=== PATIENT | male | born 1990 | race Caucasian/White ===

== ENCOUNTER → 2017-12-05 | Emergency (ER) | payer OTHER ==
[~2017-12-05] VITALS: Ht 172.7 cm; Wt 71.7 kg
[~2017-12-05] MED LIST: GILENYA0.5 MG; PNEU16DI2; VITAMIN C1000 MG; ZANTAC150 M3
== END | disposition home or self-care (01) ==
LOC: ER 18:06
DX: R10.32 Left lower quadrant pain (principal); N13.2 Hydronephrosis with renal and ureteral calculous obstruction